=== PATIENT | female | born 1965 | race Caucasian/White ===

== ENCOUNTER → 2017-01-03 | Outpatient (CLI) | payer BC ==
--- NOTE | 2017-01-03 08:16 | MM ---
Reason for exam: clinical finding. Last mammogram was performed 1 year and 2 months ago. History: Patient is postmenopausal. Family history of premenopausal breast cancer in maternal grandmother at age 50. Retro-pectoral implants in both breasts, 2007. Indicated problem(s): lump or thickening in the right breast. Physical Findings: Nurse did not find any significant physical abnormalities on exam. MG Diag Mamm Implants ZAIRE w CAD Bilateral CC, MLO, and ID view(s) were taken. Prior study comparison: November 11, 2015, bilateral MG screening mammo implant/CAD. February 02, 2013, CAD bilateral diagnostic mammogram. The breast tissue is heterogeneously dense. This may lower the sensitivity of mammography. Finding: There are few typically benign round calcifications in both breasts. There is no discrete abnormality. Bilateral retropectoral implants. These results were verbally communicated with the patient and result sheet given to the patient on 01/03/17. ASSESSMENT: Benign, BI-RAD 2 RECOMMENDATION: Routine screening mammogram of both breasts in 1 year. Manage on a clinical basis with regard to symtoms of pain.
== END | disposition home or self-care (01) ==
LOC: RADMAMWWP 06:49
PROVIDERS: ATTEND Family Medicine
DX: N63 Unspecified lump in breast (principal)